=== PATIENT | male | born 1955 | race Caucasian/White ===

== ENCOUNTER 2018-05-06 09:19 | Emergency (ER) | payer OTHER ==
[~2018-05-06] VITALS: Ht 177.8 cm; Wt 77.1 kg
[~2018-05-06 09:19] MED LIST: ADVAIR DISKUS 21 DSK INH; ALA-CORT30 GM TOP; ATIVAN0.5 M1 PO; ATIVAN1 M1 PO; ATIVAN1 MG PO; DOCUSATE SODIU100 M3 PO; FOLIC ACID 1 MG PO; FOLIC ACID1 M1 PO; HYDROXYZINE HCL25 M2 PO; HYDROXYZINE PAM50 M1 PO; LORAZEPAM1 MG PO; LUBRIDERM DAIL177 ML TOP; METOPROLOL TART25 M1 PO; MULTIVITAMIN1 TAB PO; OMEPRAZOLE20 M2 PO; ONE DAILY MULT1 EAC2 PO; PREDNISONE10 M2 PO; PROAIR HFA8.5 GM INH; TRIAMCINOLONE A15 G3 TOP; TYLENOL TAB 32325 MG PO; VITAMIN B-1100 MG PO; VITAMIN B1100 MG PO; [UNRECOGNIZED DRUG - OTHER] INH
[2018-05-06] MEDS ORDERED: AMITRIPTYLINE H25 M2 PO (09:35)
[2018-05-06] MEDS ORDERED: GABAPENTIN300 M2 PO (09:35)
[2018-05-06] MEDS ORDERED: MIRTAZAPINE30 M2 PO (09:36)
[2018-05-06] MEDS ORDERED: ADVAIR 250-501 EACH INH (09:36)
--- NOTE | 2018-05-06 10:04 | ED GI/GU/ABDOMINAL COMPLAINT ---
History of Present Illness General Chief Complaint: Abdominal Pain/Flank Pain Stated Complaint: cut on head and abd pain Source: patient Exam Limitations: no limitations Vital Signs & Intake/Output Vital Signs & Intake/Output Vital Signs Date Time Temp Pulse Resp B/P B/P Pulse O2 O2 Flow FiO2 Mean Ox Delivery Rate 05/06 1201 97.8 108 18 128/91 97 Room Air 05/06 1125 Room Air 05/06 0921 97.0 122 20 146/96 94 Room Air Allergies Coded Allergies: No Known Allergies (05/06/18) Reconcile Medications Albuterol Sulfate (Proair Hfa) 90 MCG HFA.AER.AD 2 PUF INH Q4-6 PRN PRN SHORTNESS OF BREATH (Reported) Amitriptyline HCl 25 MG TABLET 1 TAB PO QPM SLEEP (Reported) Fluticasone/Salmeterol (Advair 250-50 Diskus) 250 MCG-50 MCG/DOSE BLST.W.DEV 1 PUF INH BID BREATHING PROBLEMS (Reported) Gabapentin 300 MG CAPSULE 1 CAP PO BID UNKNOWN (Reported) Mirtazapine 30 MG TABLET 1 TAB PO QPM SLEEP (Reported) Triage Note: PT TO ED C/O LOWER ABD PAIN SINCE THIS AM. "I FEEL LIKE I HAVE TO HAVE A BOWEL MOVEMENT AND URINATE, AND I CAN'T". H/O COLITIS, STATES FEELS THE SAME. DENIES N/V. ALSO C/O "BUMP" TO TOP OF HEAD X 1 WEEK. "I DON'T KNOW IF I POPPED A PIMPLE". Triage Nurses Notes Reviewed? yes Onset: Gradual Duration: constant, changing over time, continues in ED, getting worse Quality/Severity: BLOATING Location: suprapubic Activities at Onset: rest HPI: Patient presents for evaluation of lower abdominal pain that began overnight. Patient states he is having trouble urinating and moving his bowels although denies a history of prostate disease or constipation. Past History Travel History Traveled to [place] past 21 day No Medical History Any Pertinent Medical History? 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 No Review of Systems Review of Systems Constitutional: Reports: no symptoms. EENTM: Reports: no symptoms. Respiratory: Reports: no symptoms. Cardiovascular: Reports: no symptoms. GI: Reports: see HPI. Genitourinary: Reports: no symptoms. Musculoskeletal: Reports: no symptoms. Skin: Reports: see HPI. Neurological/Psychological: Reports: no symptoms. Hematologic/Endocrine: Reports: no symptoms. Immunologic/Allergic: Reports: no symptoms. All Other Systems: Reviewed and Negative Physical Exam Physical Exam Gastrointestinal: SEE BELOW Comments: Gen.: Well-nourished, well-developed, no acute respiratory distress. Head: Normocephalic, atraumatic. Eyes: Normal inspection bilaterally Ears: Normal inspection bilaterally Nose: Normal inspection Throat/mouth : Moist mucosa Neck: Supple, full range of motion, no goiter Heart: Regular rate and rhythm, no murmurs rubs or gallops Lungs: Clear to auscultation bilaterally with normal air entry Chest: Nontender Back: Normal range of motion Abdomen: Soft, suprapubic tenderness and fullness consistent with clinically distended bladder, nondistended, normal bowel sounds Extremities: Normal range of motion grossly, equal radial pulses, no cyanosis clubbing or edema Neurologic: Cranial nerves grossly intact, speech is clear Skin: warm and dry Psychiatric: Calm, cooperative, no apparent delusions or hallucinations Core Measures ACS in differential dx? No Sepsis Present: No Sepsis Focused Exam Completed? No Progress Differential Diagnosis: ECZEMA, CELLULITIS, URINARY RETENTION, uti/ PYELONEPHRITIS, INTESTINAL OBSTRUCTION Plan of Care: Orders Procedure Date/time Status Long, Insertion/Removal/Asses 05/06 1003 Active CULTURE,URINE 05/06 1003 Active URINALYSIS 05/06 1003 Complete Laboratory Tests 05/06/18 1159: Urine Color YEL, Urine Clarity CLEAR, Urine pH 6.0, Ur Specific [place] 1.020, Urine Protein NEG, Urine Ketones NEG, Urine Nitrite NEG, Urine Bilirubin NEG, Urine Urobilinogen 0.2, Ur Leukocyte Esterase NEG, Ur Microscopic SEDIMENT EXAMINED, Urine RBC RARE, Ur Epithelial Cells RARE, Urine Hemoglobin TRACE- INTACT H, Urine Glucose NEG Microbiology 05/06 1159 URINE ROUT: Urine Culture - RECD Initial ED EKG: none Comments: 05/06/2018 10:50:02 AM patient's clinical presentation is consistent with acute urinary retention. According to his nurse, initial attempts to pass a Long catheter been unsuccessful. I suspect prostate enlargement. Morphine has been ordered for pain and another attempt at passing the catheter will be made. 05/06/2018 11:36:31 AM multiple attempts to pass a Long catheter have been unsuccessful. Bladder scanner confirm 750 mL of urine in the bladder. Patient' s case discussed with Dr. Hoang will contact Dr. Warner regarding placement of Ol[place] catheter or other definitive procedure to drain the bladder (Dr. Hoang is unable to see the patient for a few hours). 05/06/2018 12:06:56 PM Long catheter successfully placed by ED RN. Patient is feeling much better. Abdominal examination is soft nontender and nondistended. No apparent hematuria. Patient then brought to my attention his history of eczema and that he had been scratching the left side of his scalp. Physical examination reveals eczematous plaques of the scalp extremities and face. There is a large mildly boggy plaque over the left parietal occipital area of the scalp with no active bleeding. 05/06/2018 1:02:56 PM Gerardo is comfortable and his Long catheter bag reveals just under 1000 ML. Plan follow up with urology, Bactrim. Departure Departure Disposition: HOME OR SELF CARE Condition: Stable Clinical Impression Primary Impression: Urinary retention Secondary Impressions: Eczema Qualifiers: Eczema type: unspecified Qualified Code: L30.9 - Dermatitis, unspecified Referrals: Lizbeth Hough MD (PCP/Family) Additional Instructions: Begin using your triamcinolone for the eczema. Bactrim as prescribed. Follow- up with Dr. Hoang this week for reevaluation of your Long catheter and treatment for possible underlying prostate enlargement. Notify your primary care doctor of this emergency department visit and treatment plan. Return if any concerns or sudden worsening. Departure Forms: Customer Survey General Discharge Information Prescriptions: Current Visit Scripts Sulfamethoxazole/Trimethoprim (Bactrim Ds Tablet) 1 TAB PO BID #14 TAB
[2018-05-06] MEDS ORDERED: BACTRIM DS TAB1 EACH PO (13:05)
[2018-05-06 13:37] VITALS: BP 139/85
== END 2018-05-06 13:41 ==
LOC: ERH 09:19
DX: R33.9 Retention of urine, unspecified (principal); L30.9 Dermatitis, unspecified; R10.30 Lower abdominal pain, unspecified; I10 Essential (primary) hypertension; J45.909 Unspecified asthma, uncomplicated
CPT/HCPCS: 81001; 87086; 96372

== ENCOUNTER 2018-05-17 18:12 | Emergency (ER) | payer OTHER, MEDICARE ==
[~2018-05-17 18:12] MED LIST changes: +ADVAIR 250-501 EACH INH; +AMITRIPTYLINE H25 M2 PO; +BACTRIM DS TAB1 EACH PO; +GABAPENTIN300 M2 PO; +MIRTAZAPINE30 M2 PO
--- NOTE | 2018-05-17 19:03 | ED GENERAL ADULT ---
History of Present Illness General Chief Complaint: Male Genitourinary Problems Stated Complaint: BROKEN CLASP ON URINARRY CATHETER Source: patient Exam Limitations: no limitations Vital Signs & Intake/Output Vital Signs & Intake/Output Vital Signs Date Time Temp Pulse Resp B/P B/P Pulse O2 O2 Flow FiO2 Mean Ox Delivery Rate 05/17 1851 Room Air 05/17 1824 98.0 110 18 127/86 98 Room Air Allergies Coded Allergies: No Known Allergies (05/06/18) Reconcile Medications Albuterol Sulfate (Proair Hfa) 90 MCG HFA.AER.AD 2 PUF INH Q4-6 PRN PRN SHORTNESS OF BREATH (Reported) Amitriptyline HCl 25 MG TABLET 1 TAB PO QPM SLEEP (Reported) Fluticasone/Salmeterol (Advair 250-50 Diskus) 250 MCG-50 MCG/DOSE BLST.W.DEV 1 PUF INH BID BREATHING PROBLEMS (Reported) Gabapentin 300 MG CAPSULE 1 CAP PO BID UNKNOWN (Reported) Mirtazapine 30 MG TABLET 1 TAB PO QPM SLEEP (Reported) Sulfamethoxazole/Trimethoprim (Bactrim Ds Tablet) 800 MG-160 MG TABLET 1 TAB PO BID POSSIBLE INFECTION Triage Note: 62M SEEN LAST WEEK AND HAD MAKI PLACED, CLIP BROKE AND HE NEEDS A NEW LEG BAG. DENIES ANY COMPLAINTS. VSS. APPT WITH UROLOGY SATURDAY Triage Nurses Notes Reviewed? yes Onset: Abrupt Duration: minute(s): Timing: constant HPI: 62-year-old male with a history of HTN, asthma, and AVM of the left hip presenting with broken clasp on leg bag for indwelling maki cather that broke just PRACTICE LEAD. Reports he was seen in the emergency department a week and half ago for acute urinary retention., At which time he had an indwelling Maki catheter placed. States that he has an appointment scheduled with urology for reevaluation. Has been draining clear yellow urine into his leg bag. Denies any hematuria, abdominal pain, fevers. (Stephania Argueta) Past History Travel History Traveled to [place] past 21 day No Medical History Any Pertinent Medical History? 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 No (Stephania Argutea) Review of Systems Review of Systems Constitutional: Reports: no symptoms. EENTM: Reports: no symptoms. Respiratory: Reports: no symptoms. Cardiovascular: Reports: no symptoms. GI: Reports: no symptoms. Genitourinary: Reports: see HPI. Musculoskeletal: Reports: no symptoms. Skin: Reports: no symptoms. Neurological/Psychological: Reports: no symptoms. Hematologic/Endocrine: Reports: no symptoms. Immunologic/Allergic: Reports: no symptoms. All Other Systems: Reviewed and Negative (Stephania Argueta) Physical Exam Physical Exam General Appearance: well developed/nourished, no apparent distress, alert, awake Comments: Gen.: Well-nourished, well-developed, no acute distress. Head: Normocephalic, atraumatic. Eyes: Normal inspection bilaterally Ears: Normal inspection bilaterally Nose: Normal inspection Neck: Normal inspection Lungs: clear to auscultation bilaterally, normnal breath sounds Heart: regular rate and rhythm Abdomen: soft and non-tender, clear yellow urine noted in Maki bag Back: No CVA tenderness Extremities: Normal inspection Neurologic: alert and oriented x3, steady gait Skin: warm and dry Psychiatric: Normal mood and affect, no apparent delusions or hallucinations, behavior appropriate Core Measures ACS in differential dx? No CVA/TIA Diagnosis: No Sepsis Present: No Sepsis Focused Exam Completed? No (Stephania Argueta) Progress Differential Diagnoses I considered the following diagnoses in my evaluation of the patient: [Broken leg bag, no evidence of displaced Maki. Low concern for UTI vs pyelo.] Plan of Care: Patient had his leg bag replaced. He will follow-up with urology as scheduled. Given strict return precautions. Initial ED EKG: none (Stephania Argueta) Departure Departure Disposition: HOME OR SELF CARE Condition: Stable Clinical Impression Primary Impression: Maki catheter problem Referrals: Lizbeth Hough MD (PCP/Family) Additional Instructions: Follow-up with Dr. Romero as scheduled. Return to the emergency department for any new or worsening symptoms. Departure Forms: Customer Survey General Discharge Information (Stephania Argueta) PA/OUTBOARD MOTORBOAT RIGGER Co-Sign Statement Statement: ED Attending supervision documentation- I saw and evaluated the patient. I have also reviewed all the pertinent lab results and diagnostic results. I agree with the findings and the plan of care as documented in the PA's/OUTBOARD MOTORBOAT RIGGER's documentation. x I have reviewed the ED Record and agree with the PA's/OUTBOARD MOTORBOAT RIGGER's documentation. [] Additions or exceptions (if any) to the PAs/OUTBOARD MOTORBOAT RIGGER's note and plan are summarized below: [] (Palmira MIR,Thaddeus) Critical Care Note Critical Care Note Critical Care Time: non-applicable (Stephania Argueta)
[2018-05-17 19:10] VITALS: BP 151/98
== END 2018-05-17 19:11 ==
LOC: ERH 18:12
DX: T83.098A Other mechanical complication of other urinary catheter, initial encounter (principal); I10 Essential (primary) hypertension; J45.909 Unspecified asthma, uncomplicated